=== PATIENT | male | born 1990 | race Caucasian/White ===

== ENCOUNTER → 2017-04-04 | Outpatient (CLI) | payer OTHER ==
[~2017-04-04] MED LIST: CEPH500C2 PO; CHOL400T PO; GLC/500 PO; HOME1TAB18 PO; HYDR-5688 PO; MAGN400T6 PO; OMEG10007 PO; ONDA4TAB46 PO; VENL150C PO
[2017-04-04 18:29] LABS: ALKALINE PHOSPHATASE 181 U/L (45-117); ALT/SGPT 21 U/L (12-78); AST/SGOT 9 U/L (15-37); BLOOD UREA NITROGEN 13 mg/dl (7-18); CALCIUM 9.9 mg/dl (8.5-10.1); CARBON DIOXIDE 28 mmol/L (21-32); CHLORIDE 92 mmol/L (98-107); CHOLESTEROL 324 mg/dl (0-200); CHOLESTEROL/HDL RATIO 9.5; GLUCOSE 673 mg/dl (70-99); HDL CHOLESTEROL 34 mg/dl; POTASSIUM 4.3 mmol/L (3.5-5.1); SODIUM 130 mmol/L (136-145); TRIGLYCERIDES 944 mg/dl (0-150)
[2017-04-04 18:54] LABS: BETA-HYDROXYBUTYRATE 47.53 mg/dL (0.2-2.81)
[2017-04-05 08:20] LABS: ESTIMATED AVERAGE GLUCOSE 346 mg/dl; HA1C FLAG Normal (Normal)
== END | disposition home or self-care (01) ==
LOC: C.LABPVFM 15:52
PROVIDERS: ATTEND Neuromusculoskeletal Medicine & OMM
DX: E11.9 Type 2 diabetes mellitus without complications (principal)

== ENCOUNTER 2017-04-05 08:02 | Emergency (ER) | payer OTHER ==
[~2017-04-05] VITALS: Ht 175.3 cm; Wt 6.7 kg
[~2017-04-05 08:02] MED LIST changes: -CEPH500C2 PO; -CHOL400T PO; -HOME1TAB18 PO; -HYDR-5688 PO; -OMEG10007 PO; -ONDA4TAB46 PO
[2017-04-05 08:10] VITALS: TEMP 36.4; Ht 175.3 cm; Wt 6.7 kg
[2017-04-05] MEDS ORDERED: SODIUM CHLORIDE 0.9% 1000ML 1,000 ML IV STA (08:30)
[2017-04-05] MEDS ORDERED: CHOL400T PO (08:31)
[2017-04-05] MEDS ORDERED: HOME1TAB18 PO (08:31)
[2017-04-05] MEDS ORDERED: OMEG10007 PO (08:31)
[2017-04-05 09:00] LABS: URINE APPEARANCE CLEAR (CLEAR); URINE BILIRUBIN NEG (NEG); URINE COLOR YELLOW; URINE NITRITE NEG (NEG); URINE PH 5.5 (4.5-7.5); URINE SPECIFIC GRAVITY 1.041 (1.000-1.030); UROBILINOGEN NEG (NEG)
[2017-04-05 09:08] LABS: MANUAL MICROSCOPIC REQUIRED? NO; REVIEW REQ? NO
[2017-04-05 09:17] LABS: BASO % 0.8 %; BASO ABS # 0.05 K/uL (0-0.2); COMPLETE YES; EOS % 3.2 %; HEMATOCRIT 46.3 % (42-52); IG% 0.3 %; LYMPH % 33.7 %; MEAN CELL VOLUME 87.2 fL (80-100); MEAN CORPUSCULAR HEMOGLOBIN 30.9 pg (25-34); MEAN CORPUSCULAR HGB CONC 35.4 g/dl (32-36); MEAN PLATELET VOLUME 9.8 fL (7.4-10.4); MONO % 9.8 %; NEUT % 52.2 %; PLATELET COUNT 269 K/uL (130-400); RED BLOOD COUNT 5.31 M/uL (4.7-6.1); WHITE BLOOD COUNT 5.94 K/uL (4.8-10.8)
[2017-04-05 10:22] LABS: ALKALINE PHOSPHATASE 180 U/L (45-117); AMYLASE 22 U/L (25-115); BLOOD UREA NITROGEN 18 mg/dl (7-18); BUN/CREATININE RATIO 17.7 (10-20); CALCIUM 8.7 mg/dl (8.5-10.1); CARBON DIOXIDE 24 mmol/L (21-32); CHLORIDE 93 mmol/L (98-107); GLUCOSE 522 mg/dl (70-99); PHOSPHORUS 4.5 mg/dl (2.5-4.9); SODIUM 135 mmol/L (136-145)
[2017-04-05] MEDS ORDERED: INSULIN ASPART 100 UNITS/ML 3 ML PEN SC ONE (11:30)
[2017-04-05 12:07] LABS: POTASSIUM 4.5 mmol/L (3.5-5.1)
[2017-04-05 12:13] LABS: ALT/SGPT 19 U/L (12-78); AST/SGOT 6 U/L (15-37)
[2017-04-05 12:33] LABS: BETA-HYDROXYBUTYRATE 59.24 mg/dL (0.2-2.81)
[2017-04-05] MEDS ORDERED: HYDR-5688 PO (14:09)
[2017-04-05] MEDS ORDERED: ONDA4TAB46 PO (14:09)
[2017-04-05] MEDS ORDERED: CEPH500C2 PO (14:09)
[2017-04-05 15:03] LABS: BLOOD UREA NITROGEN 13 mg/dl (7-18); BUN/CREATININE RATIO 15.1 (10-20); CALCIUM 7.9 mg/dl (8.5-10.1); CARBON DIOXIDE 26 mmol/L (21-32); CHLORIDE 103 mmol/L (98-107); CREATININE 0.86 mg/dl (0.60-1.40); GLUCOSE 235 mg/dl (70-99)
[2017-04-05 15:05] LABS: SODIUM 139 mmol/L (136-145)
[2017-04-05 15:56] VITALS: BP 108/68; PULSE 74; O2SAT 98
--- NOTE | 2017-04-05 17:55 | EMERGENCY ROOM VISIT NOTE ---
ED Visit Note First contact with patient: 08:12 Chief Complaint: I was told to come into the emergency department because my blood sugar was over 700. History of Present Illness: Mr. Holloway is a 26-year-old white male who ambulates into the ED for hyperglycemia. Patient reports approximately 1.5 years ago he was diagnosis with type 2 diabetes. He was initially placed on metformin was not having control his sugars and insulin was added to his medications. He reports during this time he never followed up with his primary care provider. This past September, proximally 6 months ago, he reports he did not like how the insulin was making him feel so he stopped taking it as a medication. He reports since that time he has noted increased urinary frequency and he has been losing weight. His family has been encouraging him to follow-up with a new set PCP. He did this yesterday with Dr. Ferreira of [facility]. He reports during that visit laboratory tests were performed and he was given a prescription for glipizide to support his metformin. He goes on to report this morning he received a call from his PCP Dr. Ferreira and told to come the hospital because his blood sugar was 700. Currently patient has no complaints. He reports approximately one week ago he had a transient episode of dizziness that was short lived and self resolved. He has noted over the last 2-3 days a mild increase in urinary frequency but has no hematuria, urinary burning or he urinary urgency. He hasn't taken his medications as prescribed but has not rechecked his own blood sugar. He denies fevers, chills, sweats, headaches, dizziness, lightheadedness, visual changes, hearing changes, difficulty speaking, difficulty swallowing, neck pain/ stiffness, cough, wheezing, shortness of breath, difficulty breathing, palpitations, abdominal pain, nausea, vomiting, decreased appetite, rectal bleeding, black/tarry stools, extremity weakness/numbness/tingling. Review of Systems: As noted above in history of present illness. All body systems were reviewed and found to be negative as noted above. Past Medical History: As previously noted. Current Medications: As previously noted. Allergies to Medications: Patient denies. Social History: Patient denies tobacco and alcohol use. Physical Examination: Vital Signs: Date Time Temp Pulse Resp B/P (MAP) Pulse Ox O2 Delivery O2 Flow Rate FiO2 04/05/17 15:56 74 18 108/68 98 04/05/17 13:25 75 18 105/72 98 Room Air 04/05/17 11:55 68 18 108/61 98 Room Air 04/05/17 10:01 70 16 107/70 97 Room Air 04/05/17 08:10 36.4 93 20 128/78 100 Room Air GENERAL: 26-year-old male in acute distress, nontoxic-appearing, afebrile and hemodynamically stable. NEUROLOGICAL: Awake, alert and oriented to person, place and time. Answering questions appropriately and following commands. Normal gait. Good hand eye coordination. No focal motor or sensory deficits. SKIN: Warm, dry and pink. No soft tissue eruptions or trauma noted. HEENT: Atraumatic and normocephalic. PERRLA. EOMI without nystagmus. Sclera white and conjunctiva pink. No drainage from naris. Oral cavity moist and pink. Pharynx is nonerythematous or edematous. Speech normal. No lymphadenopathy. Trachea midline. No jugular venous distention. BACK: No tenderness over the bony spine. No CVA tenderness. THORAX: Lungs sounds are clear to auscultation and equal bilaterally with symmetrical chest wall. No wheezing, rales or rhonchi. No crepitus, tenderness , subcutaneous air or deformities noted. HEART: Regular rate and rhythm. No gallops, rubs or murmurs are appreciated. ABDOMEN: Flat, soft and nontender. Positive bowel sounds in all quadrants. No guarding, rigidity or organomegaly. EXTREMITIES: Moves all extremities well on command and with purpose. All distal neurovascular statuses are intact and equal bilaterally. No calf tenderness or cords. ED Course: Patient is assessed as noted above. Patient's medication list were reviewed. Laboratory testing: Test 04/05/17 08:20 04/05/17 08:22 04/05/17 08:45 04/05/17 10:01 Range/Units Urine Color YELLOW Urine Appearance CLEAR CLEAR Urine pH 5.5 4.5-7.5 Urine Specific Graham 1.041 1.000-1.030 Urine Protein NEG NEG Urine Glucose (UA) 3+ NEG Urine Ketones 4+ NEG Urine Occult Blood NEG NEG Urine Nitrite NEG NEG Urine Bilirubin NEG NEG Urine Urobilinogen NEG NEG Urine Leukocyte Esterase NEG NEG Bedside Glucose 494 401 70-99 mg/dl White Blood Count 5.94 4.8-10.8 K/uL Red Blood Count 5.31 4.7-6.1 M/uL Hemoglobin 16.4 14.0-18.0 g/dL Hematocrit 46.3 42-52 % Mean Corpuscular Volume 87.2 80-100 fL Mean Corpuscular Hemoglobin 30.9 25-34 pg Mean Corpuscular Hemoglobin Concent 35.4 32-36 g/dl Platelet Count 269 130-400 K/uL Mean Platelet Volume 9.8 7.4-10.4 fL Neutrophils (%) (Auto) 52.2 % Lymphocytes (%) (Auto) 33.7 % Monocytes (%) (Auto) 9.8 % Eosinophils (%) (Auto) 3.2 % Basophils (%) (Auto) 0.8 % Neutrophils # (Auto) 3.10 1.4-6.5 K/uL Lymphocytes # (Auto) 2.00 1.2-3.4 K/uL Monocytes # (Auto) 0.58 0.11-0.59 K/uL Eosinophils # (Auto) 0.19 0-0.5 K/uL Basophils # (Auto) 0.05 0-0.2 K/uL RDW Standard Deviation 43.0 36.4-46.3 fL RDW Coefficient of Variation 13.5 11.5-14.5 % Immature Granulocyte % (Auto) 0.3 % Immature Granulocyte # (Auto) 0.02 0.00-0.02 K/uL Sodium Level 135 136-145 mmol/L Potassium Level 3.5-5.1 mmol/L Chloride Level 93 98-107 mmol/L Carbon Dioxide Level 24 21-32 mmol/L Anion Gap 18.0 3-11 mmol/L Blood Urea Nitrogen 18 7-18 mg/dl Creatinine 1.00 0.60-1.40 mg/dl Est Creatinine Clear Calc Drug Dose 10.5 ml/min Estimated GFR () 119.0 Estimated GFR (Non- 102.7 BUN/Creatinine Ratio 17.7 10-20 Random Glucose 522 70-99 mg/dl Calcium Level 8.7 8.5-10.1 mg/dl Phosphorus Level 4.5 2.5-4.9 mg/dl Magnesium Level 1.8-2.4 mg/dl Total Bilirubin 0.8 0.2-1 mg/dl Direct Bilirubin 0-0.2 mg/dl Aspartate Amino Transf (AST/SGOT) 15-37 U/L Alanine Aminotransferase (ALT/SGPT) 12-78 U/L Alkaline Phosphatase 180 45-117 U/L Total Protein 7.1 6.4-8.2 gm/dl Albumin 3.4 3.4-5.0 gm/dl Amylase Level 22 25-115 U/L Lipase 256 73-393 U/L Beta-Hydroxybutyric Acid 0.2-2.81 mg/dL Test 04/05/17 10:54 04/05/17 11:01 04/05/17 12:56 04/05/17 14:09 Range/Units Bedside Glucose 346 282 70-99 mg/dl Potassium Level 4.5 3.5-5.1 mmol/L Magnesium Level 2.0 1.8-2.4 mg/dl Direct Bilirubin < 0.1 0-0.2 mg/dl Aspartate Amino Transf (AST/SGOT) 6 15-37 U/L Alanine Aminotransferase (ALT/SGPT) 19 12-78 U/L Beta-Hydroxybutyric Acid 59.24 0.2-2.81 mg/dL Sodium Level 139 136-145 mmol/L Chloride Level 103 98-107 mmol/L Carbon Dioxide Level 26 21-32 mmol/L Anion Gap 10.0 3-11 mmol/L Blood Urea Nitrogen 13 7-18 mg/dl Creatinine 0.86 0.60-1.40 mg/dl Est Creatinine Clear Calc Drug Dose 12.2 ml/min Estimated GFR () 137.7 Estimated GFR (Non- 118.8 BUN/Creatinine Ratio 15.1 10-20 Random Glucose 235 70-99 mg/dl Calcium Level 7.9 8.5-10.1 mg/dl EKG: Was read by myself and reviewed with Dr. Rangel; shows normal sinus rhythm with a ventricular rate of 67 bpm. Normal axis, intervals and complexes. No acute ST changes indicating ischemia, injury or infarction. Records were reviewed and no radius EKGs were found. Patient was hydrated with over 2 L of normal saline and additionally received 6 units of insulin aspart subcutaneous. Patient was reassessed multiple times during his stay in the emergency department. Patient's case was reviewed with Dr. Rangel; we agreed on diagnostic approach, treatment, disposition and plan. Patient's case was consulted with Dr. Emmanuel; he recommended discharged home with close follow-up this coming Monday. Patient was educated about today's findings and instructed on his treatment plan ; he verbalized understanding and agreement with this plan. Clinical Impression: Hyperglycemia. Decision-Making: Includes sepsis, lactic acidosis, uremia and other causes. Disposition: Patient discharged home in stable condition accompanied by female friends; prior to departure he subjectively reported he was feeling slightly slightly worse and that he feels he is having some mild tremors right now; none was perceived. Plan: Patient was encouraged to take his diabetic medications as prescribed. Patient was encouraged to stay well-hydrated with increased clear fluids. Patient was encouraged to keep his upcoming appointment with his PCP. Patient was encouraged return ED for worsening symptoms, fevers, uncontrolled blood sugars or any new/concerning symptoms.
== END 2017-04-05 16:00 | disposition home or self-care (01) ==
LOC: C.EDB 08:06
DX: E11.65 Type 2 diabetes mellitus with hyperglycemia (principal)

== ENCOUNTER → 2017-09-14 | Outpatient (CLI) | payer OTHER ==
[~2017-09-14] MED LIST changes: +CHOL400T PO; +HOME1TAB18 PO; +OMEG10007 PO; -VENL150C PO
[2017-09-14 13:20] LABS: HEMOGLOBIN A1C 8.9 % (4.5-5.6)
[2017-09-14 13:46] LABS: ALBUMIN 3.9 gm/dl (3.4-5.0); ALT/SGPT 23 U/L (12-78); AST/SGOT 17 U/L (15-37); BLOOD UREA NITROGEN 12 mg/dl (7-18); CALCIUM 8.9 mg/dl (8.5-10.1); CARBON DIOXIDE 27 mmol/L (21-32); CREATININE 1.04 mg/dl (0.60-1.40); GLUCOSE 129 mg/dl (70-99); POTASSIUM 4.1 mmol/L (3.5-5.1); SODIUM 139 mmol/L (136-145)
[2017-09-14 13:57] LABS: ALKALINE PHOSPHATASE 82 U/L (45-117); CHOLESTEROL 149 mg/dl (0-200); LDL CHOLESTEROL CALCULATED 83 mg/dl; TOTAL PROTEIN 7.5 gm/dl (6.4-8.2)
== END | disposition home or self-care (01) ==
LOC: C.LABPVFM 10:39
PROVIDERS: ATTEND Nurse Practitioner Adult Health
DX: E11.65 Type 2 diabetes mellitus with hyperglycemia (principal); E78.5 Hyperlipidemia, unspecified; E66.3 Overweight

== ENCOUNTER 2022-02-09 23:07 | Inpatient (IN) ==
[2022-02-09] MEDS ORDERED: LIDO/EPINEPHRINE/SOD BICARB 20 ML VIAL ONE (23:10)
[2022-02-09] MEDS ORDERED: SODIUM CHLORIDE 0.9% 1000ML 1,000 ML IV SCH (23:15)
[2022-02-09] MEDS ORDERED: LORazepam 2 MG/1 ML VIAL ONE (23:24)
[2022-02-09 23:25] LABS: Basophils # (auto) 0.07 K/uL (0-0.2); Basophils % (auto) 0.7 %; Eosinophils # (auto) 0.33 K/uL (0-0.50); Eosinophils % (auto) 3.1 %; Hematocrit (blood only) 34.8 % (40.1-51.0); Hemoglobin 11.8 g/dl (14.0-18.0); Immature Granulocytes # (auto) 0.13 K/uL (0.00-0.02); Immature Granulocytes % (auto) 1.2 %; Lymphocytes % (auto) 20.8 %; Mean Corpuscular Hemoglobin 29.1 pg (25.0-34.0); Mean Corpuscular Hgb Conc 33.9 g/dL (32.0-36.0); Mean Corpuscular Volume 85.7 fL (80.0-100.0); Mean Platelet Volume 9.3 fL (9.4-12.4); Monocytes # (auto) 0.85 K/uL (0.24-0.82); Neutrophils # (auto) 6.99 K/uL (1.4-6.5); Neutrophils % (auto) 66.2 %; Platelet Count 341 K/uL (130-400); RDW Coefficient of Variation 12.2 % (11.5-14.5); RDW Standard Deviation 38.3 fL (36.4-46.3); Red Blood Count 4.06 M/uL (4.63-6.08); White Blood Count 10.57 K/ul (4.8-10.8)
[2022-02-09] MEDS ORDERED: LIDO/EPINEPHRINE/SOD BICARB 20 ML VIAL INFIL ONE (23:26)
[2022-02-09] MEDS ORDERED: LORazepam 2 MG/1 ML VIAL IV STA (23:32)
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
[2022-02-09] MEDS ORDERED: MoRPHine SULFATE 4 MG/ML 1 ML CARP\\VIAL ONE (23:43)
[2022-02-09] MEDS ORDERED: OPTIRAY 320 100ml IV ONE (23:44)
[2022-02-09 23:46] LABS: Alanine Aminotransferase 15 U/L (7-52); Albumin Globulin Ratio 1.8 (0.9-2); Albumin Level 3.9 gm/dl (3.4-5.0); Alkaline Phosphatase 56 U/L (34-104); Anion Gap 8 (3-11); Aspartate Aminotransferase 19 U/L (13-39); BUN Creatinine Ratio 14.5 (10-20); Bilirubin,Total 0.7 mg/dl (0.2-1.0); Blood Urea Nitrogen 16 mg/dl (6-23); Calcium 9.2 mg/dl (8.5-10.1); Carbon Dioxide 27 mmol/L (21-32); Chloride 99 mmol/L (98-107); Creatine Kinase 99 U/L (30-223); Est GFR (African American) 102.4 ml/min; Est GFR (Non-African American) 88.4 ml/min; Globulin 2.2 gm/dl (2.5-4.0); Glucose 224 mg/dl (70-99(Fasting)); Potassium 3.6 mmol/L (3.5-5.1); Sodium 134 mmol/L (136-145); Total Protein 6.1 gm/dl (6.0-8.3)
[2022-02-10] MEDS ORDERED: AMPICILLIN/SULBACTAM SOD 1,500 MG in 0.9 % SODIUM CHLORIDE 100 ML IV STA (00:14)
[2022-02-10] MEDS ORDERED: SODIUM CHLORIDE 0.9% 1000ML 1,000 ML IV ONE (00:52)
[2022-02-10] MEDS ORDERED: ONDANSETRON INJ 2 MG/ML 2 ML VIAL ONE (00:54)
[2022-02-10] MEDS ORDERED: FAMOTIDINE 20MG IV PUSH 20 MG/5 ML SYR IV STA (00:55)
[2022-02-10] MEDS ORDERED: ONDANSETRON INJ 2 MG/ML 2 ML VIAL IV STA (00:55)
[2022-02-10 01:12] LABS: Hematocrit (blood only) 26.9 % (40.1-51.0); Hemoglobin 9.2 g/dl (14.0-18.0)
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
[2022-02-10 02:05] LABS: Magnesium 1.5 mg/dl (1.7-2.4)
[2022-02-10] MEDS ORDERED: KETOROLAC TROMETHAMINE 15 MG/ML VIAL IV ONE (02:50)
[2022-02-10] MEDS ORDERED: LACTATED RINGER'S 1,000 ML IV ONE (02:58)
[2022-02-10] MEDS ORDERED: LORazepam 2 MG/1 ML VIAL IV PRN ×2 (02:59→16:55)
[2022-02-10] MEDS ORDERED: PROMETHAZINE HCL 12.5 MG in SODIUM CHLORIDE 0.9% 50 ML IV PRN (03:00)
[2022-02-10] MEDS ORDERED: GLUCOSE 10 TAB/TUBE PO PRN (04:16)
[2022-02-10] MEDS ORDERED: oxyCODONE HCL IR 5 MG TAB (IMMEDIATE RELEASE) PO PRN (04:16)
[2022-02-10] MEDS ORDERED: GLUCOSE 40% GEL 15 GM TUBE PO PRN (04:16)
[2022-02-10] MEDS ORDERED: ACETAMINOPHEN 325 MG TAB PO PRN (04:16)
[2022-02-10] MEDS ORDERED: CARBOHYDRATES FOR HYPOGLYCEMIA PO PRN (04:16)
[2022-02-10] MEDS ORDERED: GLUCAGON FOR INJ 1 MG VIAL SQ PRN (04:16)
[2022-02-10] MEDS ORDERED: DEXTROSE 50% 50 ML SYRINGE IV PRN (04:16)
[2022-02-10] MEDS: INSULIN ASPART PER UNIT SC SCH ×4 (04:34→20:26)
[2022-02-10 04:37] LABS: Appearance Urine Clear (Clear); Bacteria Urine Automated Negative (Negative); Bilirubin Urine Negative (Negative); Blood Urine 1+ (Negative); Color Urine Yellow; Glucose Urine UA 2+ (Negative); Ketones Urine 2+ (Negative); Leukocyte Esterase Urine Negative (Negative); Nitrite Urine Negative (Negative); Protein Urine Negative (Negative); RBC Urine Automated 0-4 /hpf (0-4); Specific Gravity Urine > 1.045 (1.000-1.030); Urobilinogen Urine Negative (Negative); pH Urine 5.5 (4.5-7.5)
[2022-02-10] MEDS: MAGNESIUM SULFATE / D5W 1 GM/100 ML BAG IV SCH ×2 (04:57→08:00)
[2022-02-10 05:06] LABS: Amphetamines+Metham, Urine Neg (Neg); Barbiturates, Urine Neg (Neg); Benzodiazepine, Urine Neg (Neg); Cocaine, Urine Neg (Neg); MDMA (Ecstacy), Urine Neg (Neg); Methadone, Urine Neg (Neg); Opiate, Urine Pos (Neg); Phencyclidine, Urine Neg (Neg)
[2022-02-10 05:37] LABS: Basophils # (auto) 0.05 K/uL (0-0.2); Basophils % (auto) 0.4 %; Eosinophils # (auto) 0.03 K/uL (0-0.50); Eosinophils % (auto) 0.2 %; Hematocrit (blood only) 24.8 % (40.1-51.0); Hemoglobin 8.6 g/dl (14.0-18.0); Immature Granulocytes # (auto) 0.06 K/uL (0.00-0.02); Immature Granulocytes % (auto) 0.4 %; Lymphocytes # (auto) 0.97 K/uL (1.2-3.4); Mean Corpuscular Hemoglobin 30.1 pg (25.0-34.0); Mean Corpuscular Hgb Conc 34.7 g/dL (32.0-36.0); Mean Corpuscular Volume 86.7 fL (80.0-100.0); Mean Platelet Volume 9.1 fL (9.4-12.4); Monocytes # (auto) 0.81 K/uL (0.24-0.82); Monocytes % (auto) 5.9 %; Neutrophils % (auto) 86.1 %; Platelet Count 218 K/uL (130-400); RDW Coefficient of Variation 12.1 % (11.5-14.5); RDW Standard Deviation 38.4 fL (36.4-46.3); Red Blood Count 2.86 M/uL (4.63-6.08); White Blood Count 13.82 K/ul (4.8-10.8)
[2022-02-10 06:14] LABS: BUN Creatinine Ratio 18.9 (10-20); Calcium 7.5 mg/dl (8.5-10.1); Creatinine Clr Calc Pharmacy 133.5 ml/min; Est GFR (African American) 130.5 ml/min; Est GFR (Non-African American) 112.6 ml/min; Magnesium 1.5 mg/dl (1.7-2.4); Potassium 4.3 mmol/L (3.5-5.1)
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
--- NOTE | 2022-02-10 07:12 | CT Scan Report ---
HEAD CT NONCONTRAST CT DOSE: HISTORY: Trauma TECHNIQUE: Multiaxial CT images of the head were performed without the use of intravenous contrast. A utomated exposure control was utilized for this study. A dose lowering technique was utilized adheri ng to the principles of ALARA. Comparison: Head CT 11/02/2019. Findings: The paranasal sinuses and mastoid air cells are clear. The calvarium and skull base are int act. The ventricles and sulci are within normal limits. There is no mass, hematoma, midline shift, or acute infarct. Large right lateral scalp injury demonstrating both laceration and hematoma. There ar e multiple punctate radiopaque foreign bodies within the right lateral scalp with the largest measuri ng 13 mm. Impression: 1. No acute intracranial abnormality. 2. Large right lateral scalp injury demonstrating both laceration and hematoma. There are multiple pu nctate radiopaque foreign bodies within the right lateral scalp with the largest measuring 13 mm. ACT 112: Negative or not required by law. Electronically signed by: Dorian Jaramillo M.D. 02/10/2022 7:11 AM
--- NOTE | 2022-02-10 07:19 | CT Scan Report ---
CERVICAL SPINE CT CT DOSE: HISTORY: Trauma TECHNIQUE: Multiaxial CT images of the cervical spine were performed and reformatted in the sagittal and coronal plane without the use of contrast. A dose lowering technique was utilized adhering to th e principles of ALARA. COMPARISON: None. FINDINGS: No fractures. No subluxation. Prevertebral soft tissues and the C1-C2 interval are intact. No pneumothorax. IMPRESSION: No fractures within the cervical spine. ACT 112: Negative or not required by law. Electronically signed by: Dorian Jaramillo M.D. 02/10/2022 7:17 AM
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
[2022-02-10] MEDS ORDERED: LANTUS PER UNIT CHARGE SQ SCH (09:00)
[2022-02-10] MEDS ORDERED: MAGNESIUM SULFATE / D5W 1 GM/100 ML BAG IV ONE (09:00)
[2022-02-10] MEDS ORDERED: LORazepam 1 MG TAB PO PRN (10:56)
[2022-02-10] MEDS: KETOROLAC TROMETHAMINE 15 MG/ML VIAL IV PRN ×2 (11:30→20:45)
[2022-02-10] MEDS: FOLIC ACID 1 MG TAB PO SCH (11:45)
[2022-02-10] MEDS: THIAMINE HCL 100 MG TAB PO SCH (11:45)
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
[2022-02-10] MEDS ORDERED: LORazepam 2 MG/1 ML VIAL ONE (16:02)
[2022-02-10] MEDS ORDERED: levETIRAcetam 1,000 MG in 0.9 % SODIUM CHLORIDE 100 ML IV ONE (16:30)
[2022-02-10] MEDS ORDERED: LORazepam 3 MG in SYRINGE 1.5 ML IV PRN (16:37)
[2022-02-10] MEDS ORDERED: LORazepam 2 MG in SYRINGE 1 ML IV PRN (16:37)
[2022-02-10] MEDS ORDERED: ATIVAN IV ALCOHOL WITHDRAWL IV PRN (16:37)
[2022-02-10] MEDS ORDERED: LORazepam 1 MG in SYRINGE 0.5 ML IV PRN ×2 (16:37→16:58)
[2022-02-10] MEDS ORDERED: GABAPENTIN 1200MG ALCOHOL WITHDRAWAL LOAD PO STA (16:37)
[2022-02-10] MEDS ORDERED: GABAPENTIN 600 MG TAB PO ONE (16:45)
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
[2022-02-10] MEDS ORDERED: GADOBUTROL 65ML VIAL IV ONE (18:29)
[2022-02-10] MEDS ORDERED: LANTUS PER UNIT CHARGE SQ STA (19:15)
--- NOTE | 2022-02-10 19:31 | Magnetic Resonance Report ---
MRI OF THE BRAIN COMBO CLINICAL HISTORY: Seizure. COMPARISON STUDY: CT of the brain dated 02/09/2022. TECHNIQUE: MRI of the brain was performed utilizing various T1 and T2-weighted sequences in the axial , sagittal, and coronal planes. Contrast-enhanced sequences were acquired following the administratio n of 9 cc of Gadavist. The examination is performed using the seizure protocol. FINDINGS: Brain parenchyma: The brain parenchyma is normal in appearance. There is no hemorrhage or mass effect . There is no restricted diffusion to suggest acute ischemia. No enhancing mass lesion is identified on the postcontrast images. Carpenter-white matter differentiation is preserved. No extra-axial fluid clifton ection is seen. The cerebellar tonsils are normal in configuration. The hippocampi are normal and sym metric. Ventricles, sulci, and cisterns: Normal in configuration. Pituitary and sella: Unremarkable. Intracranial vasculature: Normal flow voids are maintained at the skull base. Orbits: The bony orbits are grossly intact. Orbital contents are normal in appearance. Soft tissues: Soft tissue injury is noted in the right scalp with susceptibility artifact from foreig n bodies or skin clips. Sinuses and mastoids: Clear. Calvarium: Unremarkable. Cervical cord: Partially visualized cervical spinal cord is normal in morphology and signal intensity . IMPRESSION: 1. No acute intracranial abnormality. 2. Soft tissue injury in the right scalp with susceptibility artifact from foreign bodies or skin cli ps. ACT 112: Negative or not required by law. Electronically signed by: Vincenzo Pollock M.D. 02/10/2022 7:29 PM
[2022-02-10 20:05] LABS: Hematocrit (blood only) 20.4 % (40.1-51.0)
[2022-02-10] MEDS ORDERED: SODIUM CHLORIDE 0.9% 250 ML IV PRN (20:15)
[2022-02-10] MEDS: levETIRAcetam 500 MG TAB PO SCH (20:28)
[2022-02-10] MEDS ORDERED: HEPARIN SOD 5,000 UNIT/0.5 ML VIAL SQ SCH (21:00)
--- NOTE | 2022-02-10 21:22 | Communication Note ---
Date of Service: February 10, 2022
[2022-02-10] MEDS: GABAPENTIN 600 MG TAB PO SCH (21:39)
--- NOTE | 2022-02-10 23:13 | Electrocardiogram Report ---
Test Reason : Blood Pressure : / mmHG Vent. Rate : 096 BPM Atrial Rate : 096 BPM P-R Int : 116 ms QRS Dur : 074 ms QT Int : 356 ms P-R-T Axes : 069 052 053 degrees QTc Int : 449 ms Normal sinus rhythm Normal ECG When compared with ECG of 02-NOV-2019 17:06, No significant change was found Confirmed by Alejandro Beltrán ([id number]) on 02/10/2022 11:12:46 PM Referred By: REFERRED SELF Confirmed By:Alejandro Beltrán
[2022-02-11] MEDS: GABAPENTIN 600 MG TAB PO SCH ×3 (05:57→21:04)
[2022-02-11] MEDS: KETOROLAC TROMETHAMINE 15 MG/ML VIAL IV PRN ×2 (05:57→14:16)
[2022-02-11 08:04] LABS: Basophils # (auto) 0.05 K/uL (0-0.2); Basophils % (auto) 0.7 %; Eosinophils # (auto) 0.23 K/uL (0-0.50); Hematocrit (blood only) 25.2 % (40.1-51.0); Hemoglobin 8.8 g/dl (14.0-18.0); Immature Granulocytes # (auto) 0.03 K/uL (0.00-0.02); Immature Granulocytes % (auto) 0.4 %; Lymphocytes % (auto) 19.7 %; Mean Corpuscular Hemoglobin 29.8 pg (25.0-34.0); Mean Corpuscular Hgb Conc 34.9 g/dL (32.0-36.0); Mean Corpuscular Volume 85.4 fL (80.0-100.0); Mean Platelet Volume 9.7 fL (9.4-12.4); Monocytes # (auto) 0.75 K/uL (0.24-0.82); Monocytes % (auto) 9.9 %; Neutrophils # (auto) 5.05 K/uL (1.4-6.5); Neutrophils % (auto) 66.3 %; Platelet Count 213 K/uL (130-400); RDW Coefficient of Variation 12.3 % (11.5-14.5); RDW Standard Deviation 38.5 fL (36.4-46.3); Red Blood Count 2.95 M/uL (4.63-6.08); White Blood Count 7.61 K/ul (4.8-10.8)
[2022-02-11 08:34] LABS: BUN Creatinine Ratio 12.1 (10-20); C Reactive Protein 1.27 mg/dl (0-0.5); Creatinine Clr Calc Pharmacy 132.1 ml/min; Est GFR (African American) 128.8 ml/min; Est GFR (Non-African American) 111.1 ml/min; Magnesium 2.1 mg/dl (1.7-2.4); Phosphorus 2.6 mg/dl (2.5-4.9)
[2022-02-11] MEDS ORDERED: LANTUS PER UNIT CHARGE SQ SCH (09:00)
[2022-02-11] MEDS: levETIRAcetam 500 MG TAB PO SCH ×2 (09:13→20:06)
[2022-02-11] MEDS: THIAMINE HCL 100 MG TAB PO SCH (09:13)
[2022-02-11] MEDS: FOLIC ACID 1 MG TAB PO SCH (09:13)
[2022-02-11] MEDS: INSULIN ASPART PER UNIT SC SCH ×4 (09:14→20:35)
--- NOTE | 2022-02-11 15:30 | Electroencephalogram ---
EEG Procedure Note Date of Service February 11, 2022 Start / End Times Start Time: 1107 End Time: [address] Wm Ellsworth History A 31-year-old male with history of localization-related epilepsy. EEG performed pression epileptiform activity. Home Medication List Medication Instructions Recorded Confirmed Type insulin aspart U-100 100 unit/mL 0 unit SUBCUT TIDM 02/10/22 02/10/22 History (3 mL) subcutaneous pen (Novolog Flexpen U-100 Insulin aspart) insulin glargine 100 unit/mL (3 35 unit SUBCUT QAM 02/10/22 02/10/22 History mL) subcutaneous pen (Basaglar KwikPen U-100 Insulin) levetiracetam 500 mg tablet 1,000 mg PO BID 02/10/22 02/10/22 History metformin 1,000 mg tablet 1,000 mg PO AMHS 02/10/22 02/10/22 History Inpatient Medication List Folic Acid (Folic Acid 1 Mg Tab) 1 mg PO QAM [facility] Stop: 03/12/22 08:59 Last Admin: 02/11/22 09:13 Dose: 1 mg Documented by: [id number] Admin: 02/10/22 11:45 Dose: 1 mg Documented by: [id number] Gabapentin (Gabapentin 600 Mg Tab) 600 mg PO Q8H [facility] Stop: 02/12/22 06:01 Last Admin: 02/11/22 13:06 Dose: 600 mg Documented by: [id number] Heparin Sodium (Porcine) (Heparin Sod 5,000 Unit/0.5 Ml Vial) 5,000 units SQ Q12 [facility] Stop: 03/12/22 20:59 Last Admin: 02/10/22 20:27 Dose: Not Given Documented by: [id number] Lorazepam 1 mg/ Syringe 1 mls @ 2 mls/min IV ONE PRN PRN Reason: sedation prior to MRI Stop: 02/11/22 23:59 Last Admin: 02/10/22 17:38 Dose: 2 mls/min Documented by: [id number] Insulin Aspart (Insulin Aspart Per Unit) 0 units SC ACHS [facility] Stop: 03/12/22 04:15 Last Admin: 02/11/22 13:00 Dose: 16 units Documented by: [id number] Cosigned by: [id number] Admin: 02/11/22 09:14 Dose: 10 units Documented by: [id number] Cosigned by: [id number] Admin: 02/10/22 20:26 Dose: 3 units Documented by: [id number] Cosigned by: [id number] Admin: 02/10/22 17:26 Dose: 4 units Documented by: [id number] Cosigned by: [id number] Admin: 02/10/22 11:53 Dose: 3 units Documented by: [id number] Cosigned by: [id number] Admin: 02/10/22 04:34 Dose: 6 units Documented by: [id number] Cosigned by: [id number] Insulin Glargine (Lantus Per Unit Charge) 35 units SQ DAILY [facility] Stop: 03/13/22 08:59 Last Admin: 02/11/22 09:14 Dose: 35 units Documented by: [id number] Cosigned by: [id number] Ketorolac Tromethamine (Ketorolac Tromethamine 15 Mg/Ml Vial) 15 mg IV Q6H PRN PRN Reason: Pain Stop: 02/15/22 04:15 Last Admin: 02/11/22 14:16 Dose: 15 mg Documented by: [id number] Admin: 02/11/22 05:57 Dose: 15 mg Documented by: [id number] Admin: 02/10/22 20:45 Dose: 15 mg Documented by: [id number] Admin: 02/10/22 11:30 Dose: 15 mg Documented by: [id number] Levetiracetam (Levetiracetam 500 Mg Tab) 1,500 mg PO BID [facility] Stop: 03/12/22 20:59 Last Admin: 02/11/22 09:13 Dose: 1,500 mg Documented by: [id number] Admin: 02/10/22 20:28 Dose: 1,500 mg Documented by: [id number] Thiamine HCl (Thiamine Hcl 100 Mg Tab) 100 mg PO QAM [facility] Stop: 03/12/22 08:59 Last Admin: 02/11/22 09:13 Dose: 100 mg Documented by: [id number] Admin: 02/10/22 11:45 Dose: 100 mg Documented by: [id number] Discontinued Medications Gabapentin (Gabapentin 600 Mg Tab) 1,200 mg PO NOW ONE Stop: 02/10/22 16:46 Last Admin: 02/10/22 17:37 Dose: 1,200 mg Documented by: [id number] Gabapentin (Gabapentin 600 Mg Tab) 600 mg PO Q6H [facility] Stop: 02/11/22 06:01 Last Admin: 02/11/22 05:57 Dose: 600 mg Documented by: [id number] Admin: 02/10/22 21:39 Dose: 600 mg Documented by: [id number] Gadobutrol (Gadobutrol 65ml Vial) 9 ml IV ONCE ONE Stop: 02/10/22 18:30 Last Admin: 02/10/22 18:30 Dose: 9 ml Documented by: [id number] Sodium Chloride (Nss 1000ml) 1,000 mls @ 999 mls/hr IV .Q1H1M [facility] Stop: 02/10/22 00:15 Last Infusion: 02/10/22 01:17 Dose: 0 mls/hr Documented by: [id number] Admin: 02/09/22 23:51 Dose: 999 mls/hr Documented by: [id number] Ampicillin Sodium/Sulbactam Sodium 1,500 mg/ Sodium Chloride 104 mls @ 200 mls/hr IV NOW STA; Protocol Stop: 02/10/22 00:45 Last Infusion: 02/10/22 01:40 Dose: 0 mls/hr Documented by: [id number] Admin: 02/10/22 01:08 Dose: 200 mls/hr Documented by: [id number] Sodium Chloride (Nss 1000ml) 1,000 mls @ 999 mls/hr IV .Q1H1M ONE Stop: 02/10/22 01:52 Last Infusion: 02/10/22 02:06 Dose: 0 mls/hr Documented by: [id number] Admin: 02/10/22 01:05 Dose: 999 mls/hr Documented by: [id number] Famotidine (Pepcid 20mg Iv Push) 20 mg in 5 mls @ 2.5 mls/min IV NOW STA Stop: 02/10/22 00:56 Last Admin: 02/10/22 02:44 Dose: Not Given Documented by: [id number] Levetiracetam 1,500 mg/ Sodium (Chloride) 265 mls @ 999 mls/hr IV NOW STA Stop: 02/10/22 03:34 Last Infusion: 02/10/22 04:58 Dose: 0 mls/hr Documented by: [id number] Admin: 02/10/22 04:41 Dose: 999 mls/hr Documented by: [id number] Magnesium Sulfate/Dextrose (Magnesium Sulfate / D5w) 1 gm in 100 mls @ 50 mls/hr IV Q2H [facility] Stop: 02/10/22 06:59 Last Infusion: 02/10/22 09:49 Dose: 0 mls/hr Documented by: [id number] Admin: 02/10/22 08:00 Dose: 50 mls/hr Documented by: [id number] Infusion: 02/10/22 06:57 Dose: 50 mls/hr Documented by: [id number] Admin: 02/10/22 04:57 Dose: 50 mls/hr Documented by: [id number] Lactated Ringer's (Lr) 1,000 mls @ 80 mls/hr IV .[id number] ONE Stop: 02/10/22 15:27 Last Infusion: 02/10/22 17:22 Dose: 0 mls/hr Documented by: [id number] Admin: 02/10/22 04:31 Dose: 80 mls/hr Documented by: [id number] Magnesium Sulfate/Dextrose (Magnesium Sulfate / D5w) 1 gm in 100 mls @ 50 mls/hr IV 0900 ONE Stop: 02/10/22 10:59 Last Infusion: 02/10/22 09:49 Dose: 0 mls/hr Documented by: [id number] Admin: 02/10/22 08:00 Dose: 50 mls/hr Documented by: [id number] Levetiracetam 1,000 mg/ Sodium (Chloride) 110 mls @ 440 mls/hr IV NOW ONE Stop: 02/10/22 16:44 Last Infusion: 02/10/22 17:05 Dose: 0 mls/hr Documented by: [id number] Admin: 02/10/22 16:50 Dose: 440 mls/hr Documented by: [id number] Insulin Glargine (Lantus Per Unit Charge) 25 units SQ DAILY [facility] Stop: 03/12/22 08:59 Last Admin: 02/10/22 11:27 Dose: 25 units Documented by: [id number] Cosigned by: [id number] Insulin Glargine (Lantus Per Unit Charge) 5 units SQ NOW STA Stop: 02/10/22 19:16 Last Admin: 02/10/22 20:27 Dose: 5 units Documented by: [id number] Cosigned by: [id number] Ioversol (Optiray 320 100ml) 100 ml IV ONCE ONE Stop: 02/09/22 23:45 Last Admin: 02/09/22 23:44 Dose: 93 ml Documented by: [id number] Ketorolac Tromethamine (Ketorolac Tromethamine 15 Mg/Ml Vial) 15 mg IV NOW ONE Stop: 02/10/22 02:51 Last Admin: 02/10/22 04:31 Dose: 15 mg Documented by: [id number] Lidocaine/Epinephrine (Lido/Epinephrine/Sod Bicarb 20 Ml Vial) Confirm Administered Dose 20 ml .ROUTE .STK-MED ONE Stop: 02/09/22 23:11 Last Admin: 02/09/22 23:54 Dose: Not Given Documented by: [id number] Lidocaine/Epinephrine (Lido/Epinephrine/Sod Bicarb 20 Ml Vial) 20 ml INFIL NOW ONE Stop: 02/09/22 23:27 Last Admin: 02/09/22 23:50 Dose: 20 ml Documented by: [id number] Lorazepam (Lorazepam 2 Mg/1 Ml Vial) Confirm Administered Dose 1 mg .ROUTE .STK- MED ONE Stop: 02/09/22 23:25 Last Admin: 02/09/22 23:54 Dose: Not Given Documented by: [id number] Lorazepam (Lorazepam 2 Mg/1 Ml Vial) 1 mg IV NOW STA; Protocol Stop: 02/09/22 23:33 Last Admin: 02/09/22 23:54 Dose: Not Given Documented by: [id number] Lorazepam (Lorazepam 2 Mg/1 Ml Vial) Confirm Administered Dose 2 mg .ROUTE .STK-MED ONE Stop: 02/10/22 16:03 Last Admin: 02/10/22 17:21 Dose: Not Given Documented by: [id number] Morphine Sulfate (Morphine Sulfate 4 Mg/Ml 1 Ml Carp\Vial) Confirm Administered Dose 4 mg .ROUTE .STK-MED ONE Stop: 02/09/22 23:44 Last Admin: 02/09/22 23:50 Dose: 4 mg Documented by: [id number] Ondansetron HCl (Ondansetron Inj 2 Mg/Ml 2 Ml Vial) Confirm Administered Dose 4 mg .ROUTE .STK-MED ONE Stop: 02/10/22 00:55 Last Admin: 02/10/22 01:06 Dose: 4 mg Documented by: [id number] Ondansetron HCl (Ondansetron Inj 2 Mg/Ml 2 Ml Vial) 4 mg IV NOW STA Stop: 02/10/22 00:56 Last Admin: 02/10/22 01:09 Dose: Not Given Documented by: [id number] Description This is a 21 electrode EEG with a single channel dedicated to limited EKG. The electrodes were placed in accordance with the International 10-20 system. Report: At the onset of the EEG the patient is awake. The background is symmetric. The posterior dominant rhythm is 9 Hz. There is a normal anterior to posterior gradient. There is occasional left frontotemporal sharp waves seen during drowsiness. Drowsiness is characterized by increased theta activity, reduced blink rate, decreased myogenic artifact. Photic stimulation does not induce any abnormalities. No stage II sleep transients are seen. Interpretation Impression: This is an abnormal awake and drowsy routine EEG due to intermittent left frontotemporal sharp waves suggestive of predisposition for seizures from this area. No electrographic seizures are recorded.
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
[2022-02-11] MEDS: FERROUS SULFATE 325 MG TAB PO SCH (17:47)
[2022-02-11] MEDS: LIDOCAINE 5% 1 PATCH TD SCH (18:22)
[2022-02-12] MEDS: KETOROLAC TROMETHAMINE 15 MG/ML VIAL IV PRN ×2 (05:02→12:43)
[2022-02-12] MEDS: GABAPENTIN 600 MG TAB PO SCH (05:05)
[2022-02-12 06:30] LABS: Basophils # (auto) 0.07 K/uL (0-0.2); Eosinophils # (auto) 0.36 K/uL (0-0.50); Eosinophils % (auto) 5.2 %; Hematocrit (blood only) 26.6 % (40.1-51.0); Hemoglobin 8.9 g/dl (14.0-18.0); Immature Granulocytes # (auto) 0.03 K/uL (0.00-0.02); Immature Granulocytes % (auto) 0.4 %; Lymphocytes # (auto) 1.91 K/uL (1.2-3.4); Lymphocytes % (auto) 27.7 %; Mean Corpuscular Hemoglobin 29.5 pg (25.0-34.0); Mean Corpuscular Hgb Conc 33.5 g/dL (32.0-36.0); Mean Corpuscular Volume 88.1 fL (80.0-100.0); Mean Platelet Volume 9.5 fL (9.4-12.4); Monocytes # (auto) 0.72 K/uL (0.24-0.82); Monocytes % (auto) 10.4 %; Neutrophils % (auto) 55.3 %; Platelet Count 225 K/uL (130-400); RDW Coefficient of Variation 12.4 % (11.5-14.5); RDW Standard Deviation 39.6 fL (36.4-46.3); Red Blood Count 3.02 M/uL (4.63-6.08); White Blood Count 6.89 K/ul (4.8-10.8)
[2022-02-12 07:00] LABS: Calcium 8.2 mg/dl (8.5-10.1); Creatinine Clr Calc Pharmacy 130.6 ml/min; Est GFR (African American) 127.1 ml/min; Est GFR (Non-African American) 109.7 ml/min; Potassium 4.1 mmol/L (3.5-5.1)
[2022-02-12] MEDS: INSULIN ASPART PER UNIT SC SCH ×2 (08:26→12:27)
[2022-02-12] MEDS: FOLIC ACID 1 MG TAB PO SCH (08:32)
[2022-02-12] MEDS: levETIRAcetam 500 MG TAB PO SCH (08:32)
[2022-02-12] MEDS: THIAMINE HCL 100 MG TAB PO SCH (08:32)
[2022-02-12] MEDS: FERROUS SULFATE 325 MG TAB PO SCH (08:32)
[2022-02-12] MEDS: LIDOCAINE 5% 1 PATCH TD SCH (08:33)
[2022-02-12] MEDS ORDERED: LANTUS PER UNIT CHARGE SQ SCH (09:00)
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
[2022-02-12 16:05] LABS: Codeine Urine NEGATIVE ng/mL (<50); Hydrocodone Urine NEGATIVE ng/mL (<50); Hydromor Urine NEGATIVE ng/mL (<50); Morphine Urine 1930 ng/mL (<50); Norhydrocodone Conf Ur NEGATIVE ng/mL (<50); Noroxycodone Urine NEGATIVE ng/mL (<50); Oxycodone Urine NEGATIVE ng/mL (<50); Oxymorph Urine NEGATIVE ng/mL (<50)
[2022-02-12] MEDS ORDERED: GABAPENTIN 600 MG TAB PO SCH (18:00)
[2022-02-14] MEDS ORDERED: GABAPENTIN 600 MG TAB PO SCH (06:00)
== END 2022-02-12 14:20 | disposition home or self-care (01) | DRG 101 ==
LOC: ED 23:07 → 2W 02-10 02:54